=== PATIENT | male | born 1940 | race African-American/Black ===

== ENCOUNTER 2019-03-13 12:32 | Inpatient (IN) | payer BC ==
[~2019-03-13] VITALS: Ht 172.7 cm; Wt 82.1 kg
[2019-03-13] MEDS ORDERED: SODIUM CHLORIDE 0.9% 1000ML BAG (SEPSIS BOLUS) IV ONE (12:45)
[2019-03-13] MEDS ORDERED: ACETAMINOPHEN 650MG SUPP PR ONE (12:45)
[2019-03-13] MEDS ORDERED: VANCOMYCIN 1 G PREMIX 200 ML IV SCH (13:15)
[2019-03-13] MEDS ORDERED: PIPERACILLIN/TAZOBACTAM 3.375GM/50ML PREMIX IV NR (13:15)
[2019-03-13 13:19] LABS: HEMOGLOBIN. 11.2 g/dL (14.0-18.0); MEAN CORPUSCULAR HEMOGLOBIN 26.2 pg (28.0-32.0); MEAN CORPUSCULAR VOLUME 81.5 fL (80.0-94.0); MEAN PLATELET VOLUME 9.3 fl (7.4-10.4); PLATELET 113 x1000/uL (130-400); RED BLOOD CELL COUNT 4.29 mill/uL (4.7-6.1); RED CELL DISTRIBUTION WIDTH 21.2 % (11.6-14.6)
[2019-03-13 13:26] LABS: INR 1.1; PROTHROMBIN TIME 11.8 sec (9.6-11.0)
[2019-03-13 13:29] LABS: CHLORIDE 106 mEq/L (98-107)
[2019-03-13 13:33] LABS: BG BASE EXCESS -0.2 mmol/L (-2.0-2.0); BG BILEVEL POS AIRWAY PRESSURE 15/5; BG CARBOXYHEMOGLOBIN 0.1 % (0.5-1.5); BG DEOXYHEMOGLOBIN 1.2 % (0.0-5.0); BG FRACTION INSPIRED OXYGEN 40; BG HCO3 ACT 23.4 mmol/L (22.0-26.0); BG METHEMOGLOBIN 0.3 % (0.0-1.5); BG OXYGEN SATURATION 98.8 % (92.0-98.5); BG OXYHEMOGLOBIN 98.4 % (94.0-97.0); BG PCO2 34.1 mmHg (35.0-45.0); BG PH 7.455 (7.350-7.450); BG PO2 154.4 mmHg (75.0-100.0); BG SAMPLE SITE RIGHT RADIAL; BG TOTAL HEMOGLOBIN 9.7 g/dL (12.0-18.0); BG VENT MODE MASK - BIPAP; BG VENT RATE 16 set
[2019-03-13 14:14] LABS: CLARITY URINE CLOUDY (CLEAR); COLOR URINE ORANGE (YELLOW); KETONES URINE NEGATIVE (NEGATIVE); LEUKOCYTE ESTERASE URINE 3+ (NEGATIVE); NITRITE URINE POSITIVE (NEGATIVE); OCCULT BLOOD URINE 3+ (NEGATIVE); PH URINE 6.5 (4.5-8.0); PROTEIN URINE 2+ (NEGATIVE); SPECIFIC GRAVITY URINE 1.007 (1.005-1.030); UROBILINOGEN URINE 0.2 E.U./dL (0.2-1.0)
[2019-03-13 14:50] LABS: PLATELET ESTIMATE DECREASED
[2019-03-13] MEDS ORDERED: IPRATROPIUM BROMIDE (0.02%) 0.5MG/2.5ML NEB HHN PRN (16:00)
[2019-03-13] MEDS: DILTIAZEM HCL 60MG TABLET PO SCH ×2 (16:00→22:00)
[2019-03-13] MEDS: SODIUM CHLORIDE 0.9% 1,000 ML IV SCH (16:42)
[2019-03-13] MEDS ORDERED: ACETAMINOPHEN 325MG TABLET PO PRN (16:45)
[2019-03-13] MEDS ORDERED: ONDANSETRON HCL 4MG/2ML INJ IV PRN (16:45)
[2019-03-13] MEDS ORDERED: MEROPENEM 500 MG in SODIUM CHLORIDE 0.9% 50 ML IV NR (17:00)
[2019-03-13] MEDS ORDERED: PIPERACILLIN/TAZOBACTAM 3.375 G in DEXTROSE 5% WATER 50 ML IV SCH (18:00)
[2019-03-13 19:10] VITALS: BP 137/74
[2019-03-13 20:00] VITALS: BP 137/74
[2019-03-13 22:00] VITALS: BP 109/70
[2019-03-13] MEDS: HEPARIN 5000 UNITS/ML VIAL SUBCUT SCH (22:22)
[2019-03-14] VITALS (12 sets, daily range): BP systolic 98–152; BP diastolic 68–100
[2019-03-14] MEDS: VANCOMYCIN 1 G PREMIX 200 ML IV SCH ×2 (02:11→14:43)
[2019-03-14] MEDS: MEROPENEM 500 MG in SODIUM CHLORIDE 0.9% 50 ML IV SCH ×3 (02:12→20:46)
[2019-03-14] MEDS ORDERED: AMLO5TAB88 PO (02:38)
[2019-03-14] MEDS ORDERED: CHLO25TA22 MT (02:38)
[2019-03-14] MEDS ORDERED: DOCU-138 PO (02:38)
[2019-03-14] MEDS ORDERED: SILO8CAP2 PO (02:38)
[2019-03-14] MEDS ORDERED: LISI10TA5 PO (02:38)
[2019-03-14 05:04] LABS: CHLORIDE 109 mEq/L (98-107)
[2019-03-14 05:10] LABS: BASOPHILS % 0.4 % (0.0-2.0); EOSINOPHILS % 0.1 % (0.0-5.0); HEMATOCRIT. 27.5 % (42.0-52.0); LYMPHOCYTES % 10.6 % (20.0-50.0); MEAN CORPUSCULAR HEMOGLOBIN 26.4 pg (28.0-32.0); MEAN CORPUSCULAR VOLUME 80.3 fL (80.0-94.0); MEAN PLATELET VOLUME 9.9 fl (7.4-10.4); MONOCYTES % 8.9 % (2.0-8.0); PLATELET 105 x1000/uL (130-400); RED BLOOD CELL COUNT 3.42 mill/uL (4.7-6.1); RED CELL DISTRIBUTION WIDTH 21.1 % (11.6-14.6)
[2019-03-14] MEDS: SODIUM CHLORIDE 0.9% 1,000 ML IV SCH ×2 (05:12→17:42)
[2019-03-14] MEDS: DILTIAZEM HCL 60MG TABLET PO SCH ×2 (06:00→14:45)
[2019-03-14] MEDS: HEPARIN 5000 UNITS/ML VIAL SUBCUT SCH (09:45)
[2019-03-14] MEDS ORDERED: POTASSIUM CHLORIDE 20MEQ/PACKET PO NR (13:38)
[2019-03-14] MEDS ORDERED: AMLODIPINE 5MG TABLET PO SCH (15:15)
[2019-03-14] MEDS: FERROUS SULFATE 325MG TABLET PO SCH (17:40)
[2019-03-14 17:52] LABS: TOTAL IRON BINDING CAPACITY 263 ug/dL (250-450)
[2019-03-15] VITALS (12 sets, daily range): BP systolic 128–166; BP diastolic 62–109
[2019-03-15] MEDS: VANCOMYCIN 1 G PREMIX 200 ML IV SCH (01:40)
[2019-03-15] MEDS: MEROPENEM 500 MG in SODIUM CHLORIDE 0.9% 50 ML IV SCH ×2 (03:11→12:10)
[2019-03-15 05:08] LABS: CHLORIDE 109 mEq/L (98-107)
[2019-03-15] MEDS: SODIUM CHLORIDE 0.9% 1,000 ML IV SCH ×2 (05:08→18:31)
[2019-03-15 05:14] LABS: BASOPHILS % 0.5 % (0.0-2.0); EOSINOPHILS % 1.7 % (0.0-5.0); HEMATOCRIT. 27.7 % (42.0-52.0); HEMOGLOBIN. 9.2 g/dL (14.0-18.0); LYMPHOCYTES % 12.2 % (20.0-50.0); MEAN CORPUSCULAR HEMOGLOBIN 26.2 pg (28.0-32.0); MEAN CORPUSCULAR VOLUME 78.8 fL (80.0-94.0); MEAN PLATELET VOLUME 9.8 fl (7.4-10.4); MONOCYTES % 9.7 % (2.0-8.0); NEUTROPHILS % 75.9 % (40.0-76.0); PLATELET 110 x1000/uL (130-400); RED BLOOD CELL COUNT 3.51 mill/uL (4.7-6.1); RED CELL DISTRIBUTION WIDTH 20.7 % (11.6-14.6)
[2019-03-15] MEDS: FERROUS SULFATE 325MG TABLET PO SCH ×3 (08:00→17:21)
[2019-03-15] MEDS ORDERED: AMLODIPINE 5MG TABLET PO SCH (09:00)
[2019-03-15] MEDS ORDERED: EZ-HD SUSPENSION(BARIUM SULFATE 340GM) PO ONE (10:01)
[2019-03-15] MEDS ORDERED: BARIUM SULFATE 176 GM SUSP.RECON ONE (10:01)
[2019-03-15] MEDS ORDERED: SIMETHICONE/SOD BICARB/CIT AC 1 EACH GRAN.EF.PK ONE (10:02)
[2019-03-15] MEDS ORDERED: VANCOMYCIN 1250MG in DEXTROSE 5% WATER 250ML IV SCH (13:00)
[2019-03-15] MEDS ORDERED: CEFTRIAXONE 2 G PREMIX 50 ML IV SCH (14:00)
[2019-03-15] MEDS: CEFTRIAXONE 2 G in DEXTROSE 5% WATER 50 ML IV SCH (15:10)
[2019-03-15] MEDS ORDERED: CHLORPROMAZINE HCL 25 MG TABLET PO PRN (16:25)
[2019-03-15] MEDS ORDERED: RISPERIDONE 0.5MG TABLET PO PRN (16:30)
[2019-03-15] MEDS: BRIMONIDINE 0.2% OPHTH DROPS 5ML BOTHEYE SCH (17:20)
[2019-03-15] MEDS: BIMATOPROST OP SCH (17:20)
[2019-03-15] MEDS: TIMOLOL MALEATE 0.5% OPHTH DROPS 5ML EACHEYE SCH (17:21)
[2019-03-15] MEDS ORDERED: AMLODIPINE 10MG TABLET PO SCH (17:44)
[2019-03-15] MEDS: SILDENAFIL CITRATE 20MG TABLET PO SCH (21:31)
[2019-03-16] VITALS (11 sets, daily range): BP systolic 128–152; BP diastolic 76–103
[2019-03-16 06:22] LABS: CHLORIDE 108 mEq/L (98-107)
[2019-03-16 06:38] LABS: HEMATOCRIT. 29.9 % (42.0-52.0); MEAN CORPUSCULAR HEMOGLOBIN 26.2 pg (28.0-32.0); MEAN CORPUSCULAR VOLUME 78.4 fL (80.0-94.0); MEAN PLATELET VOLUME 9.9 fl (7.4-10.4); PLATELET 141 x1000/uL (130-400); RED BLOOD CELL COUNT 3.81 mill/uL (4.7-6.1); RED CELL DISTRIBUTION WIDTH 20.5 % (11.6-14.6)
[2019-03-16] MEDS: SILDENAFIL CITRATE 20MG TABLET PO SCH ×2 (06:58→14:12)
[2019-03-16] MEDS: FERROUS SULFATE 325MG TABLET PO SCH ×3 (08:00→17:53)
[2019-03-16] MEDS: BRIMONIDINE 0.2% OPHTH DROPS 5ML BOTHEYE SCH ×2 (08:43→17:52)
[2019-03-16] MEDS: SODIUM CHLORIDE 0.9% 1,000 ML IV SCH (08:43)
[2019-03-16] MEDS: TIMOLOL MALEATE 0.5% OPHTH DROPS 5ML EACHEYE SCH ×2 (08:43→17:52)
[2019-03-16] MEDS ORDERED: DOCUSATE SODIUM 100MG CAPSULE PO SCH (09:00)
[2019-03-16] MEDS ORDERED: AMLODIPINE 10MG TABLET PO SCH (09:00)
[2019-03-16] MEDS ORDERED: LISINOPRIL 2.5MG TABLET PO SCH (10:45)
[2019-03-16] MEDS: CEFTRIAXONE 2 G in DEXTROSE 5% WATER 50 ML IV SCH (13:58)
[2019-03-16] MEDS ORDERED: CEPH500C2 MT (14:00)
[2019-03-16] MEDS ORDERED: FERR325T23 PO (14:00)
[2019-03-16] MEDS ORDERED: POTASSIUM CHLORIDE 20MEQ/PACKET PO NR (14:00)
[2019-03-16 17:48] LABS: PLATELET ESTIMATE NORMAL
[2019-03-16] MEDS: BIMATOPROST OP SCH (17:52)
== END 2019-03-16 18:50 | disposition home health service (06) | DRG 871 ==
LOC: ER 12:32 → EDBEDREQTM 14:36 → EDBEDREQ 14:36 → EDBEDREQSVC 14:36 → 5EST 16:09 → EDBEDREQTM 16:20 → EDBEDREQ 16:20 → ENRESERV 17:06
PROVIDERS: ADMIT Family Medicine Adult Medicine; ATTEND Family Medicine Adult Medicine
PROC: 5A09357 Assistance with Respiratory Ventilation, Less than 24 Consecutive Hours, Continuous Positive Airway Pressure (ICD-10-PCS; principal; 2019-03-13)
DX: A41.51 Sepsis due to Escherichia coli [E. coli] (principal); J96.01 Acute respiratory failure with hypoxia; R65.21 Severe sepsis with septic shock; D62 Acute posthemorrhagic anemia; N39.0 Urinary tract infection, site not specified; D61.818 Other pancytopenia; Z16.24 Resistance to multiple antibiotics; R13.10 Dysphagia, unspecified; E61.1 Iron deficiency; E78.00 Pure hypercholesterolemia, unspecified; I08.1 Rheumatic disorders of both mitral and tricuspid valves; K44.9 Diaphragmatic hernia without obstruction or gangrene; I48.91 Unspecified atrial fibrillation; I10 Essential (primary) hypertension; N40.1 Benign prostatic hyperplasia with lower urinary tract symptoms; R33.8 Other retention of urine; Z79.899 Other long term (current) drug therapy; Z82.49 Family history of ischemic heart disease and other diseases of the circulatory system; Z90.79 Acquired absence of other genital organ(s)
CPT/HCPCS: 36415; 36600; 71045; 74176; 74220; 80048; 80053; 80202; 81003; 82375; 82607; 82746; 82805; 83540; 83550; 83605; 83735; 83880; 84145; 84484; 85025; 87077; 87186; 87804; 92610; 93005; 93306; 94660; 97162; 99291; J0696; J1644; J2185; J2405; J2543; J3370; J7030; J7060; J7517

== ENCOUNTER 2022-03-04 02:19 | Emergency (ER) | payer BC ==
[~2022-03-04] VITALS: Ht 180.3 cm; Wt 88.0 kg
[~2022-03-04 02:19] MED LIST: AMLO5TAB88 PO; CEPH500C2 MT; CHLO25TA68 MT; DOCU-138 PO; FERR325T23 PO; LISI10TA26 PO; SILO8CAP2 PO
[2022-03-04 02:24] VITALS: BP 146/89
== END 2022-03-04 05:09 | disposition left against medical advice (07) ==
LOC: ER 02:19
DX: Z53.21 Procedure and treatment not carried out due to patient leaving prior to being seen by health care provider (principal)

== ENCOUNTER 2023-07-16 11:40 | Inpatient (IN) | payer BC, MEDICARE ==
[~2023-07-16] VITALS: Ht 167.6 cm; Wt 63.5 kg
[~2023-07-16 11:40] MED LIST changes: +APIX5TAB MT; -CEPH500C2 MT; -CHLO25TA68 MT; -FERR325T23 PO; +LACT10SO7 PO; -SILO8CAP2 PO; +TAMS-11 PO
[2023-07-16 12:36] LABS: EOSINOPHILS % 1.2 % (0.0-5.0); HEMATOCRIT. 36.7 % (42.0-52.0); HEMOGLOBIN. 12.2 g/dL (14.0-18.0); LYMPHOCYTES % 18.5 % (20.0-50.0); MEAN CORPUSCULAR HEMOGLOBIN 27.8 pg (28.0-32.0); MEAN CORPUSCULAR HGB CONC 33.3 g/dL (31.0-37.0); MEAN CORPUSCULAR VOLUME 83.4 fL (80.0-94.0); MONOCYTES % 8.6 % (2.0-8.0); NEUTROPHILS % 70.7 % (40.0-76.0); PLATELET 166 x1000/uL (130-400); RED CELL DISTRIBUTION WIDTH 16.4 % (11.6-14.6); WHITE BLOOD COUNT 7.5 x1000/uL (4.5-11.0)
[2023-07-16 12:43] LABS: CHLORIDE 106 mEq/L (98-107); POTASSIUM 4.2 mEq/L (3.5-5.1); SODIUM 140 mEq/L (136-145)
[2023-07-16 12:44] LABS: CARBON DIOXIDE 24 mEq/L (21-32)
[2023-07-16 12:49] LABS: CREATININE 1.1 mg/dL (0.6-1.3); GLUCOSE 98 mg/dL (70-105); UREA NITROGEN BLOOD 21 mg/dL (9-23)
[2023-07-16 12:52] LABS: TROPONIN I HIGH SENSITIVITY 9 ng/L (3.0-53)
[2023-07-16 14:32] LABS: TROPONIN I HIGH SENSITIVITY 8 ng/L (3.0-53)
[2023-07-16] MEDS ORDERED: ONDANSETRON HCL 4MG/2ML INJ IV PRN (17:45)
[2023-07-16 20:31] LABS: INR 1.2; PROTHROMBIN TIME 12.9 sec (9.6-11.0)
[2023-07-16] MEDS: AMLODIPINE 5MG TABLET PO SCH (21:00)
[2023-07-17] VITALS: BP 123/64; PULSE 73; RESP 16; TEMP 98.2; TEMP 98.7
[2023-07-17] MEDS: LACTULOSE 20G/30ML UDC PO SCH (00:04)
[2023-07-17] MEDS: ENOXAPARIN 80MG/0.8ML SYR SUBCUT NR (00:05)
[2023-07-17 00:26] LABS: CREATINE KINASE MB FRACTION < 0.5 ng/mL (0.5-3.6)
[2023-07-17 00:27] LABS: TROPONIN I HIGH SENSITIVITY 9 ng/L (3.0-53)
[2023-07-17 00:28] LABS: CREATINE KINASE 66 IU/L (46-171)
[2023-07-17 01:40] LABS: CLARITY URINE CLOUDY (CLEAR); COLOR URINE YELLOW (YELLOW); GLUCOSE URINE NEGATIVE (NEGATIVE); KETONES URINE NEGATIVE (NEGATIVE); LEUKOCYTE ESTERASE URINE 3+ (NEGATIVE); NITRITE URINE POSITIVE (NEGATIVE); OCCULT BLOOD URINE 3+ (NEGATIVE); PH URINE 5.5 (4.5-8.0); PROTEIN URINE TRACE (NEGATIVE); SPECIFIC GRAVITY URINE 1.011 (1.005-1.030); UROBILINOGEN URINE 0.2 E.U./dL (0.2-1.0)
[2023-07-17 01:52] LABS: *AMPHETAMINES SCREEN URINE NEGATIVE (NEGATIVE); *BARBITURATES SCREEN URINE NEGATIVE (NEGATIVE); *BENZODIAZEPINES SCREEN URINE NEGATIVE (NEGATIVE); *COCAINE SCREEN URINE NEGATIVE (NEGATIVE); CANNABINOID URINE SCREEN NEGATIVE (NEGATIVE); ECSTASY MDMA SCREEN URINE NEGATIVE (NEGATIVE); METHADONE URINE SCREEN NEGATIVE (NEGATIVE); OPIATES URINE SCREEN NEGATIVE (NEGATIVE); PHENCYCLIDINE URINE SCREEN NEGATIVE (NEGATIVE)
[2023-07-17 03:33] LABS: WBC URINE TNTC /hpf (0-2)
[2023-07-17 03:35] LABS: SQUAMOUS EPITHELIAL CELL URINE FEW /lpf (RARE/1+)
[2023-07-17 03:37] LABS: BACTERIA URINE 2+
[2023-07-17 04:00] VITALS: BP 141/89; PULSE 69; RESP 15; TEMP 98.4
[2023-07-17 07:25] LABS: BASOPHILS % 0.4 % (0.0-2.0); EOSINOPHILS % 1.1 % (0.0-5.0); HEMATOCRIT. 33.7 % (42.0-52.0); HEMOGLOBIN. 11.3 g/dL (14.0-18.0); LYMPHOCYTES % 24.2 % (20.0-50.0); MEAN CORPUSCULAR HEMOGLOBIN 28.1 pg (28.0-32.0); MEAN CORPUSCULAR HGB CONC 33.5 g/dL (31.0-37.0); MEAN CORPUSCULAR VOLUME 84.1 fL (80.0-94.0); MEAN PLATELET VOLUME 9.3 fl (7.4-10.4); MONOCYTES % 8.7 % (2.0-8.0); NEUTROPHILS % 65.6 % (40.0-76.0); PLATELET 165 x1000/uL (130-400); RED CELL DISTRIBUTION WIDTH 16.1 % (11.6-14.6); WHITE BLOOD COUNT 5.2 x1000/uL (4.5-11.0)
[2023-07-17 07:35] LABS: CALCIUM 9.5 mg/dL (8.7-10.4); CHLORIDE 109 mEq/L (98-107); POTASSIUM 3.1 mEq/L (3.5-5.1); SODIUM 142 mEq/L (136-145)
[2023-07-17 07:36] LABS: CARBON DIOXIDE 25 mEq/L (21-32)
[2023-07-17 07:38] LABS: CREATINE KINASE MB FRACTION 0.6 ng/mL (0.5-3.6)
[2023-07-17 07:39] LABS: TROPONIN I HIGH SENSITIVITY 13 ng/L (3.0-53)
[2023-07-17 07:41] LABS: CREATININE 0.8 mg/dL (0.6-1.3); GLUCOSE 79 mg/dL (70-105)
[2023-07-17 07:42] LABS: UREA NITROGEN BLOOD 14 mg/dL (9-23)
[2023-07-17 07:43] LABS: CREATINE KINASE 69 IU/L (46-171)
[2023-07-17 08:00] VITALS: BP 141/82; PULSE 71; RESP 16; TEMP 97.8
[2023-07-17] MEDS: LISINOPRIL 10MG TABLET PO SCH (08:53)
[2023-07-17] MEDS: ENOXAPARIN 80MG/0.8ML SYR SUBCUT SCH (09:07)
[2023-07-17] MEDS: POTASSIUM CHLORIDE 20MEQ/PACKET PO NR (09:51)
[2023-07-17 12:00] VITALS: BP 117/86; PULSE 60; RESP 16; TEMP 98.1
[2023-07-17] MEDS: CLOPIDOGREL 75MG TABLET PO NR (15:43)
[2023-07-17] MEDS: ASPIRIN 81MG TABLET PO NR (15:44)
[2023-07-17 16:00] VITALS: BP 133/90; PULSE 73; RESP 25; TEMP 97.7
[2023-07-17] MEDS ORDERED: LEVOFLOXACIN 500MG PREMIX 100 ML IV SCH (18:45)
[2023-07-17] MEDS: CEFTRIAXONE 1GM/50ML 50ML IV SCH (19:53)
[2023-07-17 20:00] VITALS: BP 140/86; RESP 13; TEMP 98.4
[2023-07-17] MEDS: ATORVASTATIN CALCIUM 40MG TABLET PO SCH (20:41)
[2023-07-17] MEDS: APIXABAN 5 MG TABLET PO SCH (20:41)
[2023-07-18] VITALS: BP 150/78; RESP 26; TEMP 98.3
[2023-07-18 03:47] VITALS: BP 126/76; RESP 18; TEMP 98.3
[2023-07-18 08:00] VITALS: BP 140/93; PULSE 71; RESP 16; TEMP 98.1
[2023-07-18] MEDS: ACETAMINOPHEN 325MG TABLET PO PRN (11:32)
[2023-07-18 12:00] VITALS: BP 113/75; PULSE 56; RESP 15; TEMP 98.6
[2023-07-18 16:00] VITALS: BP 141/96; PULSE 59; RESP 15; TEMP 98
[2023-07-18 19:43] VITALS: BP 117/63; PULSE 57; RESP 16; TEMP 98.3
[2023-07-19] VITALS: BP 130/86; PULSE 65; RESP 14; TEMP 98.5
[2023-07-19 04:00] VITALS: BP 141/75; PULSE 61; RESP 17; TEMP 97.2
[2023-07-19 09:53] LABS: HEMATOCRIT 35.3 % (42.0-52.0); HEMOGLOBIN 11.8 g/dL (14.0-18.0); MEAN CORPUSCULAR HGB CONC 33.6 g/dL (31.0-37.0); MEAN CORPUSCULAR VOLUME 83.5 fL (80.0-94.0); PLATELET 163 x1000/uL (130-400); RED BLOOD CELL COUNT 4.22 mill/uL (4.7-6.1); RED CELL DISTRIBUTION WIDTH 16.1 % (11.6-14.6); WHITE BLOOD COUNT 3.2 x1000/uL (4.5-11.0)
[2023-07-19 10:18] LABS: CHLORIDE 108 mEq/L (98-107); POTASSIUM 3.1 mEq/L (3.5-5.1)
[2023-07-19 10:19] LABS: CARBON DIOXIDE 26 mEq/L (21-32); SODIUM 141 mEq/L (136-145)
[2023-07-19 10:20] LABS: CALCIUM 9.7 mg/dL (8.7-10.4)
[2023-07-19 10:25] LABS: CREATININE 0.8 mg/dL (0.6-1.3); GLUCOSE 89 mg/dL (70-105); UREA NITROGEN BLOOD 12 mg/dL (9-23)
[2023-07-19] MEDS: ASPIRIN 81MG TABLET PO SCH (14:25)
[2023-07-19] MEDS: POTASSIUM CHLORIDE 20MEQ TABLET SR PO NR (14:26)
[2023-07-19 16:00] VITALS: BP 93/62; PULSE 54; RESP 13; TEMP 98
[2023-07-19] MEDS ORDERED: LIP40 PO (16:16)
[2023-07-19] MEDS ORDERED: CIPR-263 MT (16:16)
[2023-07-19 20:00] VITALS: BP 125/78; PULSE 67; RESP 16; TEMP 98.5
[2023-07-20] VITALS: BP 140/85; PULSE 67; RESP 12; TEMP 97.6
[2023-07-20 04:00] VITALS: BP 122/85; PULSE 57; RESP 14; TEMP 97.9
[2023-07-20 08:00] VITALS: BP 124/92; PULSE 65; RESP 23; TEMP 97.8
[2023-07-20 12:00] VITALS: BP 98/51; PULSE 51; RESP 13; TEMP 97.9
[2023-07-20 15:57] VITALS: BP 98/51; PULSE 51; TEMP 97.9; O2SAT 98
== END 2023-07-20 16:20 | disposition home or self-care (01) | DRG 64 ==
LOC: ER 11:40 → 5WST 15:47 → EDBEDREQTM 15:49 → EDBEDREQ 15:49 → 5EST 17:55 → 5WST 18:18 → 3WST 22:47
PROVIDERS: ADMIT Internal Medicine; ATTEND Internal Medicine
DX: I63.81 Other cerebral infarction due to occlusion or stenosis of small artery (principal); G82.50 Quadriplegia, unspecified; N39.0 Urinary tract infection, site not specified; E86.0 Dehydration; D18.00 Hemangioma unspecified site; E78.00 Pure hypercholesterolemia, unspecified; H54.7 Unspecified visual loss; I48.0 Paroxysmal atrial fibrillation; N40.0 Benign prostatic hyperplasia without lower urinary tract symptoms; N43.3 Hydrocele, unspecified; Z86.73 Personal history of transient ischemic attack (TIA), and cerebral infarction without residual deficits; D64.9 Anemia, unspecified; Z79.01 Long term (current) use of anticoagulants; Z82.49 Family history of ischemic heart disease and other diseases of the circulatory system
CPT/HCPCS: 36415; 70551; 71045; 80048; 80061; 80305; 81003; 82550; 82553; 83036; 83880; 84484; 85025; 85027; 87186; 92610; 93005; 93306; 97110; 97162; 97166; 99285; A6261; J0696; J1650